=== PATIENT | female | born 1995 | race African-American/Black ===

== ENCOUNTER 2018-07-28 10:52 | Outpatient (CLI) | payer OTHER ==
--- NOTE | 2018-07-28 12:02 | RAD ---
RIGHT WRIST THREE VIEWS: HISTORY: Wrist pain. FINDINGS: There are no signs of fracture, dislocation, or other bony or soft tissue findings. IMPRESSION: Unremarkable right wrist. POS: [facility]
== END 2018-07-28 10:53 | disposition home or self-care (01) ==
LOC: RAD-FRANK 10:52
PROVIDERS: ATTEND Nurse Practitioner Family
DX: M25.531 Pain in right wrist (principal)